=== PATIENT | female | born 1970 | race Caucasian/White ===

== ENCOUNTER 2018-07-19 16:14 | Emergency (ER) | payer BC, OTHER ==
--- NOTE | 2018-07-19 16:23 | PDOC ---
History of Present Illness - General Chief Complaint: Chest Pain Stated Complaint: CHEST PRESSURE Time Seen by Provider: 07/19/18 16:23 History Source: Patient Exam Limitations: No Limitations - History of Present Illness Initial Comments: Pt is a 48 yo F, with PMH of GERD (controlled with nexium), hiatal hernia, HTN, HLD, breast CA (lumpectomy, tamoxifen, radiation, last tx 2016), who is presenting with complaints of epigastric and "burning" pain across her lower chest since 10 am this morning after drinking coffee. Pt took her morning nexium , which normally controls her acid reflux symptoms. The pain was unrelenting and was constant to the afternoon, with no radiation or changes in intensity. The pain was not associated with n/v nor diaphoresis, and the pain was not exertional when it began. Pt went to an urgent care, and was sent to the ER for further evaluation. No interventions were provided at that time. Pt denies any recent fevers/chills, headache, vision changes, syncope, palpitations, SOB, nausea/vomiting, abdominal pain, urinary symptoms, diarrhea/constipation, or leg swelling. PCP: Dr. Veronica GI: Dr. Escalante -- endoscopy done May 2018, WNL Cards: Dr. Herndon -- echo done August 2017, WNL Social: Pt "vapes", 34 pack smoking history. No alcohol or drug use. Pt denies any recent travel or sick contacts. Surgical: lumpectomy 2/2 breast CA. Family: Dad - lymphoma age 46; Mom - [place] age 50s 07/19/18 19:15 Past History - Travel Traveled outside of the country in the last 30 days: No Close contact w/someone who was outside of country & ill: No - Past Medical History Allergies/Adverse Reactions: Allergies Allergy/AdvReac Type Severity Reaction Status Date / Time prednisone Allergy Mild REDNESS Verified 07/19/18 16:48 aspirin Allergy Unknown Verified 02/09/13 13:39 Iodinated Contrast- Oral and Allergy Unknown Verified 02/09/13 20:11 IV Dye [Iodinated Contrast Media - IV Dye] Home Medications: Ambulatory Orders Esomeprazole Magnesium [Nexium 24hr] 20 mg PO DAILY tablet 09/12/16 Cholecalciferol (Vitamin D3) [Vitamin D3] 2,000 unit PO DAILY tablet 12/29/16 Tamoxifen Citrate 20 mg PO DAILY tablet 12/29/16 - Surgical History Orthopedic Surgery: Yes (RIGHT KNEE,ANKLE) - Suicide/Smoking/Psychosocial Hx Smoking Status: Yes Smoking History: Current every day smoker Number of Cigarettes Smoked Daily: 30 Review of Systems - Review of Systems Able to Perform ROS?: Yes Is the patient limited [place] proficient: No Constitutional: Yes: Weight Stable. No: Chills, Diaphoresis, Fever, Loss of Appetite, Malaise, Weakness HEENTM: No: Blurred Vision, Double Vision, Nose Congestion, Throat Pain, Difficulty Swallowing Respiratory: No: Cough, Orthopnea, Shortness of Breath Cardiac (ROS): Yes: See HPI, Chest Pain. No: Edema, Irregular Heart Rate, Lightheadedness, Palpitations, Syncope, Chest Tightness ABD/GI: Yes: See HPI, Indigestion, Abdominal cramping. No: Abdominal Distended , Blood Streaked Bowels, Constipated, Diarrhea, Nausea, Poor Appetite, Poor Fluid Intake, Rectal Bleeding, Vomiting : No: Burning, Dysuria, Frequency, Pain, Urgency Musculoskeletal: No: Back Pain, Joint Pain Integumentary: No: Rash Neurological: No: Headache, Paresthesia, Unsteady Gait, Dizziness Psychiatric: No: Sleep Pattern Change, Change in Appetite Endocrine: No: Increased Urine, Change in Weight Hematologic/Lymphatic: No: Anemia, Blood Clots, Easy Bleeding, Easy Bruising All Other Systems: Reviewed and Negative *Physical Exam - Vital Signs Vital Signs Temperature 98 F 07/19/18 16:14 Pulse Rate 72 07/19/18 16:14 Respiratory Rate 20 07/19/18 16:14 Blood Pressure 138/84 07/19/18 16:14 O2 Sat by Pulse Oximetry (%) 100 07/19/18 16:14 07/19/18 19:14 - Physical Exam Comments: Vitals stable, pt afebrile. Pt in NAD, obese body habitus. PE showed pt alert and oriented. psych specialist generally intact, muscular strength and sensation intact. Eyes PERRLA, EOMI. Oropharynx without erythema or exudates, no LAD b/l. Dry oral mucosa with decreased skin turgor. No nasal congestion, hearing intact. Clear heart sounds, S1/S2, no JVD, b/l pedal edema, or heart murmur. Clear lung sounds, no respiratory distress, wheezes, crackles, or accessory muscle use. Abdomen tender over epigastric area, RUQ and LUQ, no rebound, no guarding. No CVA tenderness. Abdomen soft, non-distended, and with normoactive bowel sounds. Skin without jaundice, rash, or vesicular lesions. 07/19/18 19:14 ED Treatment Course - LABORATORY CBC & Chemistry Diagram: 07/19/18 17:22 07/19/18 17:22 Medical Decision Making - Medical Decision Making Pt was seen at bedside, also will be seen by attending Dr. Bueno. Pt presenting with complaints of epigastric and "burning" pain across her lower chest since 10 am this morning after drinking coffee. Pt took her morning nexium , which normally controls her acid reflux symptoms. The pain was unrelenting and was constant to the afternoon, with no radiation or changes in intensity. The pain was not associated with n/v nor diaphoresis, and the pain was not exertional when it began. Pt went to an urgent care, and was sent to the ER for further evaluation. No interventions were provided at that time. Pt denies any recent fevers/chills, headache, vision changes, syncope, palpitations, SOB, nausea/vomiting, abdominal pain, urinary symptoms, diarrhea/constipation, or leg swelling. Vitals stable, pt afebrile. Pt in NAD, obese body habitus. PE showed pt alert and oriented. psych specialist generally intact, muscular strength and sensation intact. Eyes PERRLA, EOMI. Oropharynx without erythema or exudates, no LAD b/l. Dry oral mucosa with decreased skin turgor. No nasal congestion, hearing intact. Clear heart sounds, S1/S2, no JVD, b/l pedal edema, or heart murmur. Clear lung sounds, no respiratory distress, wheezes, crackles, or accessory muscle use. Abdomen tender over epigastric area, RUQ and LUQ, no rebound, no guarding. No CVA tenderness. Abdomen soft, non-distended, and with normoactive bowel sounds. Skin without jaundice, rash, or vesicular lesions. Considering gastritis vs worsening of hiatal hernia vs ACS vs MSK. Pt vitals stable and appears comfortable, unlikely aortic dissection. No evidence of herpes zoster (no skin lesions or rash). Ordered work-up including CBC, CMP, lipase, coags, cardiac profile, ECG, chest x -ray. Provided 20 mg IV pepcid, 30 mg PO maalox, viscous lidocaine, and 1 L IV NS for improvement of abdominal/chest discomfort. Will continue to reassess pt and monitor for symptomatic improvement. ECG: NSR, intervals WNL. No significant ST segment depressions or elevations. T wave flattening in septal leads (no prior for comparison). Chest x-ray: no acute chest pathology. 07/19/18 17:40 CBC WNL CMP: AST 75 Trop <.03 With combined normal ECG and negative troponin, more likely gastritis vs emerita compared to ACS. Ordered abdominal US (liver, GB, aorta). Pending UA, US, and second troponin (20:30 pm). Pt signed out to night team. Explained presentation, ED course, any pending results, and needed interventions to Dr. Benton. 07/19/18 18:28 *DC/Admit/Observation/Transfer Diagnosis at time of Disposition: Epigastric abdominal pain - Discharge Dispostion Condition at time of disposition: Stable - Referrals - Patient Instructions - Post Discharge Activity
[2018-07-19 16:46] VITALS: BP 138/84; PULSE 72; TEMP 98; BMI 39.9
[2018-07-19] MEDS ORDERED: FAMOTIDINE 20 MG/50 ML IVPB 20 MG/50 ML MG IVPB ONE ×2 (17:03→17:23)
[2018-07-19] MEDS ORDERED: MAG HYDROX/AL HYDROX/SIMETH 30 ML UNIT-DOSE CUP PO ONE (17:03)
[2018-07-19] MEDS ORDERED: LIDOCAINE VISCOUS 2% ORAL/TOP 20 ML UNIT-DOSE CUP MM ONE (17:03)
[2018-07-19] MEDS ORDERED: SODIUM CHLORIDE 1,000 ML IV STA (17:22)
[2018-07-19] MEDS ORDERED: MAG HYDROX/AL HYDROX/SIMETH 30 ML UNIT-DOSE CUP ONE (17:23)
[2018-07-19] MEDS ORDERED: LIDOCAINE VISCOUS 2% ORAL/TOP 20 ML UNIT-DOSE CUP ONE (17:24)
[2018-07-19 17:44] LABS: BASO % 0.4 % (0-2.0); EOS % 0.2 % (0-4.5); HEMOGLOBIN 12.9 GM/dl (10.7-15.3); LYMPH % 18.3 % (8-40); MCH 30.7 pg (25.7-33.7); MCHC 33.2 g/dl (32.0-36.0); MEAN CELL VOLUME 92.6 fl (80-96); MEAN PLT VOLUME 9.6 fl (7.5-11.1); NEUT % 77.1 % (42.8-82.8); PLATELET COUNT 184 K/MM3 (134-434); RBC 4.21 M/mm3 (3.60-5.2); RDW 13.7 % (11.6-15.6); WHITE BLOOD COUNT 8.1 K/mm3 (4.0-10.8)
[2018-07-19 17:45] LABS: INR 1.16 (0.82-1.09); PROTHROMBIN TIME (PATIENT) 12.9 SEC (10.2-13.0)
[2018-07-19 18:02] LABS: ALK PHOS 74 U/L (45-117); ANION GAP 10 MMOL/L (8-16); BILIRUBIN,TOTAL 1.5 mg/dl (0.2-1); BLOOD UREA NITROGEN 12 mg/dl (7-18); CALCIUM 9.5 mg/dl (8.5-10); CHLORIDE 98 mmol/L (98-107); CO2 26 mmol/L (21-32); CREATININE 0.7 mg/dl (0.55-1.3); GLUCOSE,RANDOM 97 mg/dl (74-106); POTASSIUM 3.9 mmol/L (3.5-5.1); SGOT/AST 75 U/L (15-37); SGPT/ALT 58 U/L (13-61); SODIUM 134 mmol/L (136-145); TOT PROT 7.1 g/dl (6.4-8.2)
--- NOTE | 2018-07-19 18:08 | PDOC ---
Attending Attestation - Resident Resident Name: Tari Lopez - ED Attending Attestation I have performed the following: I have examined & evaluated the patient, The case was reviewed & discussed with the resident, I agree w/resident's findings & plan, Exceptions are as noted - HPI HPI: 07/19/18 18:52 The patient is a 48 year old female, with a significant past medical history of Arnold-Chiari malformation, GERD (well controlled), hiatal hernia, HTN, HLD, and breast cancer (s/p lumpectomy) who presents to the emergency department with burning epigastric pain radiating laterally and intermittently up. The patient states her pain started at around 10am after having coffee. Patient notes she has not eaten today. The patient states she went to urgent care and was told to go to the ED for further evaluations due to abnormal EKG? Patient had a recent echo that was reportedly normal and a endoscopy in May that was reportedly normal. The patient denies shortness of breath, headache or dizziness. The patient denies fever, chills, nausea, vomit, diarrhea or constipation. The patient denies dysuria, frequency, urgency or hematuria. Allergies: aspirin, Iodinated Contrast- Oral and IV Dye Past surgical history: Orthopedic Surgery(RIGHT KNEE,ANKLE) Social history: Everyday smoker - Physicial Exam PE: 07/19/18 18:32 GENERAL: Awake, alert, and fully oriented, in no acute distress. Reading on phone. EYES: PERRLA, EOMI, sclera anicteric, conjunctiva clear ENT: Moist mucosa LUNGS: Breath sounds equal, clear to auscultation bilaterally. No wheezes, and no crackles HEART: Regular rate and rhythm, normal S1 and S2, no murmurs, rubs or gallops ABDOMEN: Soft, non distended, +epigastric and RUQ ttp, neg murphys sign. No other abd ttp. No rebound or guarding. No CVAT EXTREMITIES: Normal range of motion, no edema. No cords, erythema, or tenderness NEUROLOGICAL: Normal speech, cranial nerves intact, equal strength and sensation b/l SKIN: Warm, Dry, normal turgor, no rashes or lesions noted. - Medical Decision Making 07/19/18 18:38 48yo F hx Breast ca s/p lumpectomy, hiatial hernia, GERD, HTN, HL presents to the ED from urgent care for evaluation of CP. In the ED, pt points to her epigastric area and states pain radiates to RUQ and LUQ. Vitals wnl. Exam with epigastric and RUQ ttp. DDx includes GERD vs pancreatitis vs cholecystitis vs hiatal hernia vs ACS. HEart score is 3, will check 2 trops. EKG non ischemic. Plan: -labs -RUQ US -UA -sxs control -reassess 07/19/18 19:00 Labs with bili 1.5, mild AST elevated Trop neg Plan to get RUQ US Pending are US, UA, and trop #2 Case signed out to overnight attending for further mgmt/dispo Heart Score/ECG Review - History History: Slightly suspicious - Electrocardiogram EKG: Normal - Age Age: 45-65 - Risk Factors Risk Factors Heart Score: Yes Hx Hypercholesterolemia, Yes Hx Hypertension, Yes Smoking History, Yes Positive family hx of cardiac disease, Yes Hx Obesity Based on the list above the patient has:: >/=3 risk factors or Hx atherosclerotic disease - Troponin Troponin: </= normal limit - Score Heart Score - Total: 3 #1 07/19/18 18:44 Twelve-lead EKG was performed and reviewed by me. Normal sinus rhythm, rate 70 to. Normal axis and intervals. No ST elevations or T-wave inversions.
--- NOTE | 2018-07-19 19:36 | PDOC ---
*Physical Exam - Vital Signs Last Vital Signs Temp Pulse Resp BP Pulse Ox 98 F 72 20 138/84 100 07/19/18 16:14 07/19/18 16:14 07/19/18 16:14 07/19/18 16:14 07/19/18 16:14 ED Treatment Course - LABORATORY CBC & Chemistry Diagram: 07/19/18 17:22 07/19/18 17:22 - ADDITIONAL ORDERS Additional order review: Laboratory Results 07/19/18 07/19/18 07/19/18 17:22 17:22 17:22 PT with INR 12.9 INR 1.16 Sodium 134 L Potassium 3.9 Chloride 98 Carbon Dioxide 26 Anion Gap 10 BUN 12 Creatinine 0.7 Creat Clearance w eGFR > 60 Random Glucose 97 Calcium 9.5 Total Bilirubin 1.5 H AST 75 H ALT 58 Alkaline Phosphatase 74 Creatine Kinase 43 Troponin I Total Protein 7.1 Albumin 4.0 Lipase 165 07/19/18 17:22 PT with INR INR Sodium Potassium Chloride Carbon Dioxide Anion Gap BUN Creatinine Creat Clearance w eGFR Random Glucose Calcium Total Bilirubin AST ALT Alkaline Phosphatase Creatine Kinase Troponin I < 0.03 Total Protein Albumin Lipase 07/19/18 17:22 RBC 4.21 MCV 92.6 MCHC 33.2 RDW 13.7 MPV 9.6 Neutrophils % 77.1 Lymphocytes % 18.3 Monocytes % 4.0 Eosinophils % 0.2 Basophils % 0.4 - Medications Given in the ED: ED Medications Discontinued Medications Generic Name Dose Route Start Last Admin Trade Name Freq PRN Reason Stop Dose Admin Al Hydroxide/Mg Hydroxide 30 ml 07/19/18 17:03 07/19/18 17:29 Mylanta Oral Suspension - PO 07/19/18 17:04 30 ml ONCE ONE Administration Famotidine/Sodium Chloride 20 mg in 50 mls @ 100 mls/hr 07/19/18 17:03 17:29 Pepcid 20 Mg Premixed Ivpb - IVPB 07/19/18 17:32 100 mls/hr ONCE ONE Administration Sodium Chloride 1,000 mls @ 1,000 mls/hr 07/19/18 17:22 07/19/18 17:30 Normal Saline - IV 07/19/18 18:21 1,000 mls/hr ASDIR STA Administration Lidocaine HCl 20 ml 07/19/18 17:03 07/19/18 17:29 Xylocaine 2% Viscous Oral - MM 07/19/18 17:04 20 ml ONCE ONE Administration Progress Note - Progress Note Progress Note: Care of this patient received from . This 48-year-old woman presented with epigastric/right upper quadrant pain . At signout , second troponin level and gallbladder ultrasound results were pending. The patient continued to be relatively comfortable although she had some residual mild discomfort in the right upper quadrant. No new symptoms present. Second troponin is less than 0.03. Abdominal ultrasound reveals 1.2 cm x 0.4 cm echogenic, nonmobile area within the gallbladder, adjacent to the neck area. CBD is slightly dilated at 0.6 centimeter. No other significant abnormality seen on study with no evidence of acute cholecystitis. Lesion within the gallbladder could be consistent with stone/mass/sludge. Results discussed with the patient. Patient is relatively comfortable and eager to be discharged. She states that she has both a cable tool driller and a general surgeon with whom she can consult. It was recommended that she follow up with one of them within the next few days. If she has any development of severe, persistent pain/vomiting/fever, she should return to the ER. Meanwhile, she should adhere to a low fat diet and take Tylenol as needed for pain (patient is ALLERGIC to prednisone/NSAIDs/ASA) *DC/Admit/Observation/Transfer Diagnosis at time of Disposition: Epigastric abdominal pain, Gall bladder stones - Discharge Dispostion Disposition: HOME Condition at time of disposition: Stable - Referrals - Patient Instructions Printed Discharge Instructions: Gallstones Additional Instructions: Low-fat diet Drink plenty of fluids Tylenol as needed for pain Follow-up with your cable tool driller/general surgeon Return to ER if you have persistent, severe pain/fever/vomiting - Post Discharge Activity
[2018-07-19 19:37] LABS: URINE APPEARANCE CLEAR; URINE BILIRUBIN NEGATIVE (NEGATIVE); URINE COLOR YELLOW; URINE GLUCOSE (UA) NEGATIVE (NEGATIVE); URINE KETONE NEGATIVE (NEGATIVE)
[2018-07-19 19:38] LABS: URINE LEUK ESTERASE NEGATIVE (NEGATIVE); URINE NITRITE NEGATIVE (NEGATIVE); URINE PROTEIN NEGATIVE (NEGATIVE); URINE UROBILINOGEN 0.2 (0.2-1.0)
[2018-07-19] MEDS ORDERED: ACETAMINOPHEN 500 MG TABLET (FP) PO ONE (21:42)
[2018-07-19] MEDS ORDERED: ACETAMINOPHEN 500 MG TABLET (FP) ONE (21:43)
--- NOTE | 2018-07-20 12:08 | EKG ---
Test Reason : Blood Pressure : / mmHG Vent. Rate : 072 BPM Atrial Rate : 072 BPM P-R Int : 182 ms QRS Dur : 086 ms QT Int : 410 ms P-R-T Axes : 072 021 057 degrees QTc Int : 448 ms NORMAL SINUS RHYTHM SEPTAL INFARCT , AGE UNDETERMINED ABNORMAL ECG NO PREVIOUS ECGS AVAILABLE Confirmed by MD DAVID, BEN ([id number]) on 07/20/2018 12:08:08 PM Referred By: DOROTHY Confirmed By:BEN HERNANDEZ MD
== END 2018-07-19 21:48 | disposition home or self-care (01) ==
LOC: FER 16:14
PROC: 3E033GC Introduction of Other Therapeutic Substance into Peripheral Vein, Percutaneous Approach (ICD-10-PCS; principal; 2018-07-19)
PROC: 3E0337Z Introduction of Electrolytic and Water Balance Substance into Peripheral Vein, Percutaneous Approach (ICD-10-PCS; 2018-07-19)
DX: R10.13 Epigastric pain (principal); F17.210 Nicotine dependence, cigarettes, uncomplicated
CPT/HCPCS: 36415; 71046-TC-FY; 76705-TC; 80053; 81003; 82550; 83690; 84484; 85025; 85610; 87086; 93005; 99283-25; J7030